=== PATIENT | male | born 1960 | race African-American/Black ===

== ENCOUNTER 2017-04-27 11:09 | Emergency (ER) | payer OTHER ==
[2017-04-27] MEDS ORDERED: ASPIRIN 81 MG TABLET, CHEWABLE PO ONE (11:16)
[2017-04-27] MEDS ORDERED: NITROGLYCERIN 2% OINTMENT 1 GM PACKET TP ONE (11:34)
[2017-04-27 11:41] LABS: ABSOLUTE EOSINOPHILS # (AUTO) 0.2 10^3/uL (0.0-0.6); ABSOLUTE LYMPHOCYTES (AUTO) 1.4 10^3/uL (0.5-4.7); ABSOLUTE MONOCYTES (AUTO) 0.7 10^3/uL (0.1-1.4); ABSOLUTE NEUT (AUTO) 3.8 10^3/uL (1.7-8.2); BASOPHILS % (AUTO) 0.3 % (0-2); EOSINOPHILS % (AUTO) 2.6 % (0-6); HEMATOCRIT 44.1 % (37.9-51.0); HEMOGLOBIN 14.1 g/dL (13.5-17.0); HGB HCT DIFFERENCE -1.8; LYMPHOCYTES % (AUTO) 22.5 % (13-45); MEAN CORPUSCULAR HEMOGLOBIN 23.3 pg (27.0-33.4); MEAN CORPUSCULAR VOLUME 73 fl (80-97); MONOCYTES % (AUTO) 12.2 % (3-13); RED BLOOD COUNT 6.05 10^6/uL (4.35-5.55); RED CELL DISTRIBUTION WIDTH 15.2 % (11.5-14.0); SEGMENTED NEUTROPHILS % (AUTO) 62.4 % (42-78); WHITE BLOOD COUNT 6.1 10^3/uL (4.0-10.5)
--- NOTE | 2017-04-27 11:41 | RADIOLOGY REPORT (SQ) ---
EXAM DESCRIPTION: CHEST SINGLE VIEW COMPLETED DATE/TIME: 04/27/2017 11:32 am REASON FOR STUDY: cp COMPARISON: None. EXAM PARAMETERS: NUMBER OF VIEWS: One view. TECHNIQUE: Single frontal radiographic view of the chest acquired. RADIATION DOSE: NA LIMITATIONS: None. FINDINGS: LUNGS AND PLEURA: No opacities, masses or pneumothorax. No pleural effusion. MEDIASTINUM AND HILAR STRUCTURES: No masses. Contour normal. HEART AND VASCULAR STRUCTURES: Heart normal in size. Normal vasculature. BONES: No acute findings. HARDWARE: None in the chest. OTHER: No other significant finding. IMPRESSION: NO ACUTE RADIOGRAPHIC FINDING IN THE CHEST. TECHNICAL DOCUMENTATION: JOB ID: [id number] [employer]- All Rights Reserved
[2017-04-27 11:47] LABS: PROTHROMBIN TIME 13.2 SEC (11.4-15.4)
[2017-04-27 12:08] LABS: ALANINE AMINOTRANSFERASE 40 U/L (21-72); ALBUMIN 4.4 g/dL (3.5-5.0); ALKALINE PHOSPHATASE 84 U/L (38-126); ANION GAP 14 (5-19); ASPARTATE AMINO TRANSFERASE 26 U/L (17-59); BILIRUBIN,DIRECT 0.3 mg/dL (0.0-0.4); BILIRUBIN,TOTAL 0.7 mg/dL (0.2-1.3); BLOOD UREA NITROGEN 20 mg/dL (7-20); CALCIUM 9.1 mg/dL (8.4-10.2); CARBON DIOXIDE 24 mmol/L (22-30); CHLORIDE 106 mmol/L (98-107); CREATINE KINASE 196 U/L (55-170); CREATININE RESULT 0.92 mg/dL (0.52-1.25); GLUCOSE 121 mg/dL (75-110); LIPASE 72.7 U/L (23-300); MAGNESIUM 1.9 mg/dL (1.6-2.3); POTASSIUM 4.4 mmol/L (3.6-5.0); SODIUM 143.9 mmol/L (137-145); TOTAL PROTEIN 6.9 g/dL (6.3-8.2)
[2017-04-27 12:33] LABS: APPEARANCE,URINE CLEAR; BILIRUBIN,URINE NEGATIVE (NEGATIVE); GLUCOSE, URINE NEGATIVE (NEGATIVE); KETONES,URINE NEGATIVE (NEGATIVE); LEUKOCYTE ESTERASE,URINE TRACE (NEGATIVE); NITRITE,URINE NEGATIVE (NEGATIVE); PROTEIN,URINE 100 mg/dL (NEGATIVE); URINE SPECIFIC GRAVITY 1.021; UROBILINOGEN,URINE NEGATIVE mg/dL (<2.0)
[2017-04-27 12:34] LABS: TROPONIN I < 0.012 ng/mL
[2017-04-27 14:20] VITALS: BP 115/76
--- NOTE | 2017-04-27 14:43 | EKG REPORT ---
SEVERITY:- ABNORMAL ECG - SINUS RHYTHM LVH WITH SECONDARY REPOLARIZATION ABNORMALITY ANTERIOR Q WAVES, POSSIBLY DUE TO LVH ABNORMAL T, PROBABLE ISCHEMIA, LATERAL LEADS : Confirmed by: Soco Valadez MD 27-Apr-2017 14:42:38
--- NOTE | 2017-04-27 14:43 | ER Document Report ---
ED General - General Chief Complaint: Chest Pain > 30 Stated Complaint: CHEST PAIN Time Seen by Provider: 04/27/17 11:16 TRAVEL OUTSIDE OF THE [place] IN LAST 30 DAYS: No - HPI Patient complains to provider of: Chest pain hematuria Notes: Patient coming in for evaluation chest pain hematuria. Patient states chest pain substernal with no shortness of breath no radiation ongoing since last night patient was given 2 nitro tablets by EMS at the [place] [facility] day he was being evaluated at prior to transport patient states is resolved his pain from a 4 out of 5 to now a 1 out of 5. Patient denies any GI history. Patient does state he does have a history of hyperlipidemia and diabetes. Patient also states history of prostate cancer approximately 8 years ago did have his prostate removed for recurrence of the cancer underwent radiation treatment. Patient states currently chest pain-free however the last 48 hours developed hematuria. Denies any trauma. Patient resting comfortably upon my evaluation. - Related Data Allergies/Adverse Reactions: lisinopril Allergy (Verified 04/27/17 11:24) Past Medical History - Social History Smoking Status: Unknown if Ever Smoked Family History: Reviewed & Not Pertinent Patient has suicidal ideation: No Patient has homicidal ideation: No - Past Medical History Cardiac Medical History: Reports: Hx Hypercholesterolemia, Hx Hypertension Endocrine Medical History: Reports: Hx Diabetes Mellitus Type 2 Renal/ Medical History: Denies: Hx Peritoneal Dialysis Past Surgical History: Reports: Hx Abdominal Surgery - hernia Review of Systems - Review of Systems Constitutional: No symptoms reported EENT: No symptoms reported Cardiovascular: Chest pain Respiratory: No symptoms reported Gastrointestinal: No symptoms reported Genitourinary: Hematuria Male Genitourinary: No symptoms reported Musculoskeletal: No symptoms reported Skin: No symptoms reported Hematologic/Lymphatic: No symptoms reported Neurological/Psychological: No symptoms reported -: Yes All other systems reviewed and negative Physical Exam - Vital signs Vitals: Resp Pulse Ox 17 98 04/27/17 11:18 04/27/17 11:18 Interpretation: Normal - General General appearance: Appears well, Alert - HEENT Head: Normocephalic, Atraumatic Eyes: Normal Pupils: PERRL - Respiratory Respiratory status: No respiratory distress Chest status: Nontender Breath sounds: Normal Chest palpation: Normal - Cardiovascular Rhythm: Regular Heart sounds: Normal auscultation Murmur: No - Abdominal Inspection: Normal Distension: No distension Bowel sounds: Normal Tenderness: Nontender Organomegaly: No organomegaly - Back Back: Normal, Nontender - Extremities General upper extremity: Normal inspection, Nontender, Normal color, Normal ROM , Normal temperature General lower extremity: Normal inspection, Nontender, Normal color, Normal ROM , Normal temperature, Normal weight bearing. No: Jesse's sign - Neurological Neuro grossly intact: Yes Cognition: Normal Orientation: AAOx4 Ezequiel Coma Scale Eye Opening: Spontaneous Val[place] Coma Scale Verbal: Oriented [place] Coma Scale Motor: Obeys Commands Ezequiel Coma Scale Total: 15 Speech: Normal Motor strength normal: LUE, RUE, LLE, RLE Sensory: Normal - Psychological Associated symptoms: Normal affect, Normal mood - Skin Skin Temperature: Warm Skin Moisture: Dry Skin Color: Normal Course - Re-evaluation Re-evalutation: 04/27/17 15:30 Recommended to the patient that he be admitted for chest pain is at the patient' s EKG was abnormal with diffuse T-wave inversions and ST segment depression. No signs of acute KS or STEMI. The recommended given the patient's troponin was negative and ongoing chest pain greater than 12 hours that due to the relief of pain with nitro that he stay in the hospital for further testing such as stress test and further rule out. Patient's urinalysis did show hematuria due to his history of prostate cancer concern for bladder cancer. Patient states that he would rather go home and follow-up with [facility] provider. I did highly discouraged this explained to the patient that this could result in certain or disability patient and at bedside state understanding. Patient will sign out AGAINST MEDICAL ADVICE. The patient has decided not to proceed with further recommended testing or treatment to determine the cause of their symptoms. The risks and alternatives to the recommendation were discussed and the patient voiced understanding. The patient appears clinically to have capacity to make this decision. The patient was instructed that he/she could return to the ER at any time to complete the testing or treatment.. - Vital Signs Vital signs: Temp Pulse Resp BP Pulse Ox 14 115/76 97 04/27/17 14:01 04/27/17 14:01 04/27/17 14:01 - Laboratory Result Diagrams: 04/27/17 11:25 04/27/17 11:25 Laboratory results interpreted by me: 04/27/17 04/27/17 04/27/17 11:25 11:25 11:25 RBC 6.05 H MCV 73 L MCH 23.3 L RDW 15.2 H APTT 38.0 H Glucose 121 H Creatine Kinase 196 H Urine Protein Urine Blood Ur Leukocyte Esterase 04/27/17 12:05 RBC MCV MCH RDW APTT Glucose Creatine Kinase Urine Protein 100 H Urine Blood MODERATE H Ur Leukocyte Esterase TRACE H Discharge - Discharge Clinical Impression: Abnormal EKG Chest pain Qualifiers: Chest pain type: unspecified Qualified Code(s): R07.9 - Chest pain, unspecified Hematuria Qualifiers: Hematuria type: gross Qualified Code(s): R31.0 - Gross hematuria Condition: Good Disposition: AGAINST MEDICAL ADVICE Instructions: Chest Pain of Unclear Cause ([facility]), Hematuria ([facility]) Additional Instructions: At this time your hematuria does not seem to be causing you any signs of anemia. I am concerned with your history of prostate cancer that she may now have possible cancer in her bladder he will need to follow-up with your primary care physician to see a urologist. He may follow-up with urologist listed here. Your EKG is not 100% normal however your lab work and chest x-ray did not show any significant pathology. There is no signs of any heart damage at this time. Is very concerning that she have abnormal EKG chest pain that was resolved with nitro however at this time despite my education and despite me offering you admission to the hospital you have stated that she was to leave or sign out AGAINST MEDICAL ADVICE. He stated understanding that this could result in certain or disability making it unable for you to work for you to brush her teeth for you to walk. I highly recommend she follow-up with your primary care physician. I do think any further testing done to Evaluate your heart. At any time he can return to the ER for further evaluation. Referrals: ARTURO SULLIVAN MD [ACTIVE STAFF] - Follow up as needed SHAHLA CUEVAS MD [NO LOCAL MD] - Follow up as needed
== END 2017-04-27 14:50 | disposition left against medical advice (07) ==
LOC: ER 11:09
DX: R31.0 Gross hematuria (principal); R07.9 Chest pain, unspecified; R94.31 Abnormal electrocardiogram [ECG] [EKG]; E78.5 Hyperlipidemia, unspecified; E11.9 Type 2 diabetes mellitus without complications; Z85.46 Personal history of malignant neoplasm of prostate
CPT/HCPCS: 36415; 71010; 80053; 81001; 82550; 82553; 83690; 83735; 84484; 85025; 85379; 85610; 85730; 87086; 87088; 87186; 93005; 93010; 99285

== ENCOUNTER 2017-05-02 10:39 | Observation (INO) | payer OTHER ==
--- NOTE | 2017-05-02 12:09 | ER Document Report ---
ED Medical Screen (RME) - General Chief Complaint: Chest Pain Stated Complaint: CHEST PAIN Time Seen by Provider: 05/02/17 12:07 Notes: Patient was here on 27 April for chest pain. However he left AMA. He states he is still having the pain so he decided to return for evaluation. He states he does not have any pain at rest. However when he moves or coughs he feels pain behind his sternum that radiates to his back. He states he does take an aspirin a day. He denies any previous history of heart disease or any type of cardiac evaluation in the past. TRAVEL OUTSIDE OF THE [place] IN LAST 30 DAYS: No - Related Data Allergies/Adverse Reactions: lisinopril Allergy (Verified 04/27/17 11:24) Home Medications: Current Home Medications Carboxymethylcellulos/Glycerin [Refresh Optive Gel Eye Drops] 10 ml OP PRN PRN 05/02/17 [History] Latanoprost [Xalatan 0.005% Oph Soln 2.5 ml] 1 drop OP QHS 05/02/17 [History] Losartan Potassium 100 mg PO DAILY 05/02/17 [History] Omeprazole 20 mg PO DAILY 05/02/17 [History] Oxybutynin Chloride 5 mg PO BID 05/02/17 [History] Sertraline HCl 100 mg PO DAILY 05/02/17 [History] Simvastatin 20 mg PO DAILY 05/02/17 [History] Trazodone HCl 50 mg PO PRN PRN 05/02/17 [History] Past Medical History - Social History Chew tobacco use (# tins/day): No Frequency of alcohol use: Rare Drug Abuse: None - Past Medical History Cardiac Medical History: Reports: Hx Hypercholesterolemia, Hx Hypertension Endocrine Medical History: Reports: Hx Diabetes Mellitus Type 2 Renal/ Medical History: Denies: Hx Peritoneal Dialysis Past Surgical History: Reports: Hx Abdominal Surgery - hernia Physical Exam - Vital signs Vitals: Temp Pulse Resp BP Pulse Ox 98.0 F 70 20 128/71 H 99 05/02/17 10:54 05/02/17 10:54 05/02/17 10:54 05/02/17 10:54 05/02/17 10:54 Course - Vital Signs Vital signs: Temp Pulse Resp BP Pulse Ox 98.0 F 70 20 128/71 H 99 05/02/17 10:54 05/02/17 10:54 05/02/17 10:54 05/02/17 10:54 05/02/17 10:54
[2017-05-02 12:30] LABS: ABSOLUTE EOSINOPHILS # (AUTO) 0.1 10^3/uL (0.0-0.6); ABSOLUTE LYMPHOCYTES (AUTO) 1.2 10^3/uL (0.5-4.7); ABSOLUTE MONOCYTES (AUTO) 0.5 10^3/uL (0.1-1.4); ABSOLUTE NEUT (AUTO) 2.2 10^3/uL (1.7-8.2); BASOPHILS % (AUTO) 0.6 % (0-2); EOSINOPHILS % (AUTO) 3.4 % (0-6); HEMATOCRIT 45.1 % (37.9-51.0); HEMOGLOBIN 14.8 g/dL (13.5-17.0); HGB HCT DIFFERENCE -0.7; LYMPHOCYTES % (AUTO) 30.4 % (13-45); MEAN CORPUSCULAR HEMOGLOBIN 23.8 pg (27.0-33.4); MEAN CORPUSCULAR HGB CONC 32.7 g/dL (32.0-36.0); MEAN CORPUSCULAR VOLUME 73 fl (80-97); MONOCYTES % (AUTO) 11.2 % (3-13); RED BLOOD COUNT 6.19 10^6/uL (4.35-5.55); RED CELL DISTRIBUTION WIDTH 15.2 % (11.5-14.0); SEGMENTED NEUTROPHILS % (AUTO) 54.4 % (42-78); WHITE BLOOD COUNT 4.1 10^3/uL (4.0-10.5)
--- NOTE | 2017-05-02 12:31 | RADIOLOGY REPORT (SQ) ---
EXAM DESCRIPTION: CHEST PA/LAT COMPLETED DATE/TIME: 05/02/2017 12:22 pm REASON FOR STUDY: pain COMPARISON: 04/27/2017. EXAM PARAMETERS: NUMBER OF VIEWS: two views TECHNIQUE: Digital Frontal and Lateral radiographic views of the chest acquired. RADIATION DOSE: NA LIMITATIONS: none FINDINGS: LUNGS AND PLEURA: No opacities, masses or pneumothorax. No pleural effusion. MEDIASTINUM AND HILAR STRUCTURES: No masses or contour abnormalities. HEART AND VASCULAR STRUCTURES: Heart normal size. No evidence for failure. BONES: No acute findings. HARDWARE: None in the chest. OTHER: No other significant finding. IMPRESSION: NO SIGNIFICANT RADIOGRAPHIC FINDING IN THE CHEST. TECHNICAL DOCUMENTATION: JOB ID: [id number] [employer]- All Rights Reserved
[2017-05-02 12:50] LABS: ALANINE AMINOTRANSFERASE 43 U/L (21-72); ALBUMIN 4.9 g/dL (3.5-5.0); ALKALINE PHOSPHATASE 92 U/L (38-126); ANION GAP 13 (5-19); ASPARTATE AMINO TRANSFERASE 32 U/L (17-59); BILIRUBIN,DIRECT 0.3 mg/dL (0.0-0.4); BILIRUBIN,TOTAL 0.7 mg/dL (0.2-1.3); BLOOD UREA NITROGEN 19 mg/dL (7-20); CALCIUM 9.8 mg/dL (8.4-10.2); CARBON DIOXIDE 28 mmol/L (22-30); CHLORIDE 103 mmol/L (98-107); CREATININE RESULT 0.84 mg/dL (0.52-1.25); GLUCOSE 71 mg/dL (75-110); POTASSIUM 4.2 mmol/L (3.6-5.0); SODIUM 144.1 mmol/L (137-145); TOTAL PROTEIN 7.8 g/dL (6.3-8.2)
[2017-05-02] MEDS ORDERED: ASPIRIN 81 MG TABLET, CHEWABLE PO ONE (13:04)
--- NOTE | 2017-05-02 13:07 | ER Document Report ---
ED Cardiac - General Chief Complaint: Chest Pain Stated Complaint: CHEST PAIN Time Seen by Provider: 05/02/17 12:07 Information source: Patient Notes: 56-year-old male with past medical history as recorded who presents today stating some chest pain intermittently nonexertional for 1 week. He was here 1 week ago and told to stable left AGAINST MEDICAL ADVICE. He denies any nausea, vomiting, fevers, calf pain or leg swelling. He returns here today because his [facility] physician told him to come here for evaluation/admission secondary to some increased chest pain. Patient does smoke and states family history of mom with congestive heart failure. Patient supposedly has a stress test scheduled for May at an outside facility. TRAVEL OUTSIDE OF THE [place] IN LAST 30 DAYS: No - HPI Patient complains to provider of: Chest pain, Chest tightness Was the onset of pain: Gradual Chest pain location: Substernal Quality of pain: Intermittent Chest pain radiation location: None Severity now: None Severity at worst: Moderate Pain level currently: Denies Cardiac risk factors: denies: None Exacerbated by: Denies Relieved by: Nothing Similar symptoms previously: No Recently seen / treated by doctor: No - Related Data Allergies/Adverse Reactions: lisinopril Allergy (Verified 04/27/17 11:24) Home Medications: Current Home Medications Carboxymethylcellulos/Glycerin [Refresh Optive Gel Eye Drops] 10 ml OP PRN PRN 05/02/17 [History] Latanoprost [Xalatan 0.005% Oph Soln 2.5 ml] 1 drop OP QHS 05/02/17 [History] Losartan Potassium 100 mg PO DAILY 05/02/17 [History] Omeprazole 20 mg PO DAILY 05/02/17 [History] Oxybutynin Chloride 5 mg PO BID 05/02/17 [History] Sertraline HCl 100 mg PO DAILY 05/02/17 [History] Simvastatin 20 mg PO DAILY 05/02/17 [History] Trazodone HCl 50 mg PO PRN PRN 05/02/17 [History] Past Medical History - General Information source: Patient - Social History Smoking Status: Current Every Day Smoker Cigarette use (# per day): No Chew tobacco use (# tins/day): No Smoking Education Provided: No Frequency of alcohol use: Rare Drug Abuse: None Family History: Reviewed & Not Pertinent Patient has suicidal ideation: No Patient has homicidal ideation: No - Past Medical History Cardiac Medical History: Reports: Hx Hypercholesterolemia, Hx Hypertension Endocrine Medical History: Reports: Hx Diabetes Mellitus Type 2 Renal/ Medical History: Denies: Hx Peritoneal Dialysis Past Surgical History: Reports: Hx Abdominal Surgery - hernia Review of Systems - Review of Systems Constitutional: denies: Fever EENT: denies: Eye discharge, Double vision, Nose discharge Cardiovascular: denies: Palpitations, Heart racing Respiratory: denies: Short of breath Gastrointestinal: denies: Abdomen distended, Abdominal pain, Vomiting Genitourinary: denies: Dysuria Musculoskeletal: denies: Leg swelling Skin: Other - no hives. denies: Rash Neurological/Psychological: Other - no slurred speech -: Yes All other systems reviewed and negative Physical Exam - Vital signs Vitals: Temp Pulse Resp BP Pulse Ox 98.0 F 70 20 128/71 H 99 05/02/17 10:54 05/02/17 10:54 05/02/17 10:54 05/02/17 10:54 05/02/17 10:54 Notes: Reviewed vital signs and nursing note as charted by RN. CONSTITUTIONAL: Alert and oriented and responds appropriately to questions. Well -appearing; well-nourished HEAD: Normocephalic; atraumatic CARD: Regular rate and rhythm; no murmurs, no clicks, no rubs, no gallops; symmetric distal pulses RESP: Normal chest excursion without splinting or tachypnea; breath sounds clear and equal bilaterally ABD/GI: Normal bowel sounds; non-distended; soft, non-tender BACK: The back appears normal and is non-tender to palpation EXT: Normal ROM in all joints; non-tender to palpation; no edema SKIN: No acute lesions noted NEURO: Moves all extremities equally; Motor and sensory function intact PSYCH: The patient's mood and manner are appropriate. Grooming and personal hygiene are appropriate. Course - Re-evaluation Re-evalutation: 05/02/17 13:06 Given the history and physical examination we will obtain an EKG, cardiac panel , x-ray of the chest, and reassess. Patient currently has no tenderness at this time. Patient took only a 1 81 mg baby aspirin earlier today. Believe the risk of pulmonary embolism and aortic dissection to be extremely unlikely. EKG shows a heart of 74, normal sinus rhythm, normal axis, LVH present, inverted T waves in leads I, 2, aVL, V4 through V6 with some mild ST depression in leads V4 through V6. Old EKG on April 27, 2017 shows no obvious appreciable changes 05/02/17 13:31 Patient is still chest pain-free. Initial troponin is unremarkable. Chest x-ray shows normal heart, normal mediastinum, no fractures, normal lung stroud, no pneumothorax. - Vital Signs Vital signs: Temp Pulse Resp BP Pulse Ox 98.0 F 70 20 128/71 H 99 05/02/17 10:54 05/02/17 10:54 05/02/17 10:54 05/02/17 10:54 05/02/17 10:54 - Laboratory Result Diagrams: 05/02/17 12:15 05/02/17 12:15 Laboratory results interpreted by me: 05/02/17 05/02/17 12:15 12:15 RBC 6.19 H MCV 73 L MCH 23.8 L RDW 15.2 H Glucose 71 L Discharge - Discharge Clinical Impression: Chest pain Qualifiers: Chest pain type: unspecified Qualified Code(s): R07.9 - Chest pain, unspecified Condition: Fair Disposition: ADMITTED OBSERVATION Admitting Provider: Hospitalist Unit Admitted: Telemetry
--- NOTE | 2017-05-02 13:24 | EKG REPORT ---
SEVERITY:- ABNORMAL ECG - SINUS RHYTHM PROBABLE LEFT ATRIAL ABNORMALITY LVH WITH SECONDARY REPOLARIZATION ABNORMALITY ANTERIOR Q WAVES, POSSIBLY DUE TO LVH ABNORMAL T, PROBABLE ISCHEMIA, LATERAL LEADS : Confirmed by: Eliezer Clarke MD 02-May-2017 13:22:46
[2017-05-02] MEDS ORDERED: NITROGLYCERIN 0.4 MG/TAB 25 TAB/BOTTLE SL PRN (14:21)
--- NOTE | 2017-05-02 15:00 | PDOC H&P ---
History of Present Illness Admission Date/PCP: 05/02/17 13:53 Patient complains of: chest pain History of Present Illness: JUAN MIGUEL JOLLEY is a 56 year old male presenting with a 1 week history of chest pain. Patient states last on patient started having chest pain. Patient states he ate and felt pain in the middle of his chest. One Sunday, he went to the [place] and he was sent to [facility] further evaluation. Patient left before being evaluated. Patient states since he has been home he has noticed that if he turns the wrong way while lying down or if he moves too much he feels the pain in the center of the chest. Patient states that he coughs he feels as if it most was back. Patient denies any abdominal pain or any radiation to the jaw or the left arm. Patient states that is not always associated with food. Patient denies ever having any chest discomfort in the past. The pain does come and go. It is hard for the patient to describe the pain but it feels as if something is getting stuck. Patient does note that he has been becoming more short of breath than usual but denies any difficulty lying flat or any swelling of his feet. 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 Patient states he has not been to work since last week. Patient does have a history of type 2 diabetes, hypertension, hyperlipidemia and a smoking history. He has never had a stress test. In the ED chest x-ray was negative, EKG showed some T-wave abnormality in lateral leads however patient initial troponin was negative. Patient was bradycardic and did have normal blood pressures. Past Medical History Cardiac Medical History: Reports: Hyperlipidema, Hypertension Endocrine Medical History: Reports: Diabetes Mellitus Type 2 Psychiatric Medical History: Reports: Tobacco Dependency Social History Smoking Status: Current Every Day Smoker - Advance Directive Resuscitation Status: Full Code Family History Family History: CAD, Other - renal failure Parental Family History Reviewed: No Children Family History Reviewed: No Sibling(s) Family History Reviewed.: No Medication/Allergy Home Medications: Carboxymethylcellulos/Glycerin [Refresh Optive Gel Eye Drops] 10 ml OP PRN PRN 05/02/17 Latanoprost [Xalatan 0.005% Oph Soln 2.5 ml] 1 drop OP QHS 05/02/17 Losartan Potassium 100 mg PO DAILY 05/02/17 Omeprazole 20 mg PO DAILY 05/02/17 Oxybutynin Chloride 5 mg PO BID 05/02/17 Sertraline HCl 100 mg PO DAILY 05/02/17 Simvastatin 20 mg PO DAILY 05/02/17 Trazodone HCl 50 mg PO PRN PRN 05/02/17 Allergies/Adverse Reactions: lisinopril Allergy (Verified 04/27/17 11:24) Review of Systems Constitutional: ABSENT: chills, fever(s), headache(s), weight gain, weight loss Eyes: ABSENT: visual disturbances Ears: ABSENT: hearing changes Cardiovascular: PRESENT: chest pain, dyspnea on exertion. ABSENT: edema, orthropnea, palpitations Respiratory: ABSENT: cough, hemoptysis Gastrointestinal: ABSENT: abdominal pain, constipation, diarrhea, hematemesis, hematochezia, nausea, vomiting Genitourinary: ABSENT: dysuria, hematuria Musculoskeletal: ABSENT: joint swelling Integumentary: ABSENT: rash, wounds Neurological: ABSENT: abnormal gait, abnormal speech, confusion, dizziness, focal weakness, syncope Psychiatric: ABSENT: anxiety, depression, homidical ideation, suicidal ideation Endocrine: ABSENT: cold intolerance, heat intolerance, polydipsia, polyuria Hematologic/Lymphatic: ABSENT: easy bleeding, easy bruising Physical Exam Vital Signs: Temp Pulse Resp BP Pulse Ox 98.0 F 70 20 129/78 H 100 05/02/17 10:54 05/02/17 10:54 05/02/17 13:01 05/02/17 13:01 05/02/17 13:01 General appearance: PRESENT: no acute distress, well-developed, well-nourished Head exam: PRESENT: normocephalic Eye exam: PRESENT: EOMI. ABSENT: scleral icterus Ear exam: PRESENT: normal external ear exam Mouth exam: PRESENT: moist Neck exam: ABSENT: carotid bruit, JVD, lymphadenopathy, thyromegaly Respiratory exam: PRESENT: clear to auscultation maria esther. ABSENT: rales, rhonchi, wheezes Cardiovascular exam: PRESENT: RRR. ABSENT: diastolic murmur, rubs, systolic murmur Pulses: PRESENT: normal dorsalis pedis pul Vascular exam: PRESENT: normal capillary refill GI/Abdominal exam: PRESENT: normal bowel sounds, soft. ABSENT: distended, guarding, mass, organolmegaly, rebound, tenderness Rectal exam: PRESENT: deferred Extremities exam: PRESENT: full ROM. ABSENT: calf tenderness, clubbing, pedal edema Neurological exam: PRESENT: alert, awake, oriented to person, oriented to place , oriented to time, oriented to situation, CN II-XII grossly intact. ABSENT: motor sensory deficit Psychiatric exam: PRESENT: appropriate affect, normal mood. ABSENT: homicidal ideation, suicidal ideation Skin exam: PRESENT: dry, intact, warm. ABSENT: cyanosis, rash Results Impressions: Chest X-Ray 05/02/17 12:07 IMPRESSION: NO SIGNIFICANT RADIOGRAPHIC FINDING IN THE CHEST. Assessment & Plan - Diagnosis (1) Chest pain Qualifiers: Chest pain type: unspecified Qualified Code(s): R07.9 - Chest pain, unspecified Is this a current diagnosis for this admission?: Yes Plan: Patient chest pain appears atypical however with a history of diabetes hypertension, hyperlipidemia and tobacco abuse it is appropriate that patient ACS rule out. He is on aspirin, statin and telemetry. No beta-reg given as patient is currently bradycardic. Cardiac echo ordered. Cardiology consulted to further evaluate patient. He given PPI as this may be GERD. 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 (2) HLD (hyperlipidemia) Qualifiers: Hyperlipidemia type: unspecified Qualified Code(s): E78.5 - Hyperlipidemia , unspecified Is this a current diagnosis for this admission?: Yes Plan: Continue patient on statin. Check lipid panel in the morning. (3) Type 2 diabetes mellitus Qualifiers: Diabetes mellitus complication status: without complication Is this a current diagnosis for this admission?: Yes Plan: Will place patient on sliding scale insulin. Will check hemoglobin A1c in the morning.. (4) Hypertension Qualifiers: Hypertension type: essential hypertension Qualified Code(s): I10 - Essential (primary) hypertension Is this a current diagnosis for this admission?: Yes Plan: Blood pressures are currently well controlled. Will continue home medications. (5) Bradycardia Is this a current diagnosis for this admission?: Yes Plan: This is asymptomatic in nature. As stated above patient would not be given a beta-reg as he is already bradycardic. (6) Tobacco abuse Is this a current diagnosis for this admission?: Yes Plan: Given nicotine patch and counseled patient on smoking cessation. - Time Time Spent: 30 to 50 Minutes Anticipated discharge: Home Within: within 24 hours - Inpatient Certification Medical Necessity: Risk of Diagnosis Which Will Require Inpatient Eval/Care/ Monitoring
[2017-05-02] MEDS ORDERED: DEXTROSE 50%-WATER 25 GM/50 ML DISP.SYRIN IV PRN ×2 (15:30)
[2017-05-02] MEDS ORDERED: GLUCAGON,HUMAN RECOMB 1 MG INJ IM PRN (15:30)
[2017-05-02] MEDS ORDERED: INSULIN LISPRO 100 UNIT/ML 3 ML VIAL SUBCUT PRN (15:30)
[2017-05-02] MEDS ORDERED: DEXTROSE 40% GEL 15 GM TUBE PO PRN ×2 (15:30)
--- NOTE | 2017-05-02 17:58 | XCELERA REPORT ---
[address] [address] Transthoracic Echocardiogram Report Name: JUAN MIGUEL JOLLEY Age: 56 yrs Gender: Male : 1960 Patient Status: Inpatient Patient Location: [place] [address]^A Study Date: 05/02/2017 02:42 PM Height: 66 in Weight: 167 lb BSA: 1.9 m2 Procedure: A two-dimensional transthoracic echocardiogram with color flow and Doppler was performed. The study was technically adequate with some images being suboptimal in quality. Reason For Study: Chest Pain Ordering Physician: FERNY MALIK Performed By: Aniyah Kearney Interpretation Summary The left ventricle is normal in size. There is mild concentric left ventricular hypertrophy. LV EF is > than 65% Left ventricular systolic function is normal. Doppler measurements suggest impaired left ventricular relaxation, which is associated with grade I/IV or mild diastolic dysfunction The left ventricular wall motion is normal. There is no thrombus. There is no ventricular septal defect visualized. The right atrium is normal. The left atrium is mildly dilated. The interatrial septum is intact with no evidence for an atrial septal defect. There is no evidence of mitral valve prolapse. There is no vegetation seen on the mitral valve. There is no mitral valve stenosis. There is a trace amount of mitral regurgitation There is no aortic valve stenosis There is no LVOT obstruction. There is a mild amount of aortic regurgitation There is no tricuspid stenosis. No tricuspid regurgitation. Cannot calculate RVSP due to insufficient TR jet. There is no pericardial effusion. MMode/2D Measurements & Calculations RVDd: 2.3 cm LVIDd: 5.4 cmFS: 48.5 % Ao root diam: 3.2 cm IVSd: 1.2 cm LVIDs: 2.8 cmEDV(Teich): 139.0 ml LVPWd: 1.2 cmESV(Teich): 28.5 ml Ao root area: 8.0 cm2 EF(Teich): 79.5 % LA dimension: 4.3 cm LVOT diam: 1.9 cm LVOT area: 2.9 cm2 Doppler Measurements & Calculations MV E max azeb: MV P1/2t max azeb: Ao V2 max: AI max azeb: 94.8 cm/sec 93.8 cm/sec 210.2 cm/sec 454.1 cm/sec MV A max azeb: MV P1/2t: 61.9 msec Ao max PG: AI max P.6 cm/sec MVA(P1/2t): 3.6 cm2 17.7 mmHg 82.5 mmHg MV E/A: 0.91 MV dec slope: CECILY(V,D): 2.7 cm2AI dec slope: 443.9 cm/sec2 170.6 cm/sec2 AI P1/2t: 779.8 msec LV V1 max PG: PA V2 max: 15.9 mmHg 87.9 cm/sec LV V1 max: PA max P.1 mmHg 199.5 cm/sec Left Ventricle The left ventricle is normal in size. There is mild concentric left ventricular hypertrophy. LV EF is > than 65%. Left ventricular systolic function is normal. Doppler measurements suggest impaired left ventricular relaxation, which is associated with grade I/IV or mild diastolic dysfunction. The left ventricular wall motion is normal. There is no thrombus. There is no ventricular septal defect visualized. Right Ventricle The right ventricle is normal size. Atria The right atrium is normal. The left atrium is mildly dilated. The interatrial septum is intact with no evidence for an atrial septal defect. Mitral Valve There is no evidence of mitral valve prolapse. There is no vegetation seen on the mitral valve. There is no mitral valve stenosis. There is a trace amount of mitral regurgitation. Aortic Valve There is no aortic valvular vegetation. There is no aortic valve stenosis. There is no LVOT obstruction. There is a mild amount of aortic regurgitation. Tricuspid Valve There is no tricuspid stenosis. No tricuspid regurgitation. Cannot calculate RVSP due to insufficient TR jet. Pulmonic Valve There is no pulmonic valvular stenosis. There is no pulmonic valvular regurgitation. Great Vessels The aortic root is normal size. Effusions There is no pericardial effusion. : FERNY MALIK > Soco Valadez
[2017-05-02] MEDS ORDERED: TRAZODONE HCL 50 MG TABLET PO PRN (22:44)
[2017-05-02 22:47] LABS: URINE BARBITURATES SCREEN NEGATIVE; URINE METHADONE SCREEN NEGATIVE; URINE OPIATES LOW NEGATIVE; URINE PHENCYCLIDINE SCREEN NEGATIVE
[2017-05-03] MEDS ORDERED: DEXTROSE 50%-WATER 25 GM/50 ML DISP.SYRIN IV PRN ×2 (07:22)
[2017-05-03] MEDS ORDERED: GLUCAGON,HUMAN RECOMB 1 MG INJ SUBCUT PRN (07:22)
[2017-05-03] MEDS ORDERED: DEXTROSE 40% GEL 15 GM TUBE PO PRN ×2 (07:22)
[2017-05-03 07:52] LABS: CHOLESTEROL 183.65 mg/dL (0-200); Direct HDL 44 mg/dL (>40); TRIGLYCERIDES 92 mg/dL (<150)
[2017-05-03 08:04] LABS: DIRECT LDL 118 mg/dL (<100)
[2017-05-03 08:24] LABS: THYROID STIMULATING HORMONE 0.8 uIU/mL (0.47-4.68)
[2017-05-03] MEDS ORDERED: LANSOPRAZOLE 15 MG TAB.RAP.DR PO SCH (10:00)
[2017-05-03] MEDS ORDERED: LOSARTAN POTASSIUM 50 MG TABLET PO SCH (10:00)
[2017-05-03] MEDS ORDERED: PANTOPRAZOLE SODIUM 40 MG VIAL IV SCH (10:00)
[2017-05-03] MEDS ORDERED: MULTIVITAMIN TABLET PO SCH (10:00)
[2017-05-03] MEDS ORDERED: ASPIRIN 81 MG TABLET, CHEWABLE PO SCH (10:00)
[2017-05-03] MEDS ORDERED: CIPROFLOXACIN HCL 500 MG TABLET PO SCH (10:00)
[2017-05-03] MEDS ORDERED: SERTRALINE HCL 50 MG TABLET PO SCH (10:00)
[2017-05-03] MEDS ORDERED: CARBOXYMETHYLCELLULOSE SOD 0.5% 0.4 ML DROPERETTE OU SCH (10:00)
[2017-05-03 11:49] VITALS: BP 138/81
[2017-05-03] MEDS ORDERED: REGADENOSON INJ 0.4 MG/5 ML DISP.SYRIN IV ONE (14:14)
--- NOTE | 2017-05-03 15:16 | PDOC DISCHARGE SUMMARY ---
General - Admit/Disc Date/PCP Admission Date/Primary Care Provider: 05/02/17 13:53 Discharge Date: 05/03/17 - Discharge Diagnosis (1) Chest pain Is this a current diagnosis for this admission?: Yes (2) HLD (hyperlipidemia) Is this a current diagnosis for this admission?: Yes (3) Type 2 diabetes mellitus Is this a current diagnosis for this admission?: Yes (4) Hypertension Is this a current diagnosis for this admission?: Yes (5) Bradycardia Is this a current diagnosis for this admission?: Yes (6) Tobacco abuse Is this a current diagnosis for this admission?: Yes - Additional Information Resuscitation Status: Full Code Discharge Diet: Cardiac, Diabetic Discharge Activity: Activity As Tolerated Home Medications: Aspirin [Aspirin EC] 81 mg PO DAILY 05/02/17 Carboxymethylcellulose Sodium [Refresh Tears] 1 drop OU Q12 05/02/17 Ciprofloxacin HCl [Cipro] 500 mg PO Q12 05/02/17 Latanoprost [Xalatan 0.005% Oph Soln 2.5 ml] 1 drop OU QHS 05/02/17 Losartan Potassium [Cozaar 100 mg Tablet] 100 mg PO DAILY 05/02/17 Multivitamin [Daily Multiple Vitamin] 1 tab PO DAILY 05/02/17 Omeprazole 20 mg PO DAILY 05/02/17 Oxybutynin Chloride [Ditropan 5 mg Tablet] 5 mg PO Q12 05/02/17 Sertraline HCl [Zoloft] 100 mg PO DAILY 05/02/17 Simvastatin [Zocor 40 mg Tablet] 20 mg PO QHS 05/02/17 Trazodone HCl [Desyrel 50 mg Tablet] 50 mg PO HSP PRN 05/02/17 Triamcinolone Acetonide [Aristocort 0.1% Cream] 1 applic TOP Q12 05/02/17 History of Present Illness History of Present Illness: JUAN MIGUEL JOLLEY is a 56 year old male presenting with a 1 week history of chest pain. Patient states last on patient started having chest pain. Patient states he ate and felt pain in the middle of his chest. One Sunday, he went to the [place] and he was sent to [facility] further evaluation. Patient left before being evaluated. Patient states since he has been home he has noticed that if he turns the wrong way while lying down or if he moves too much he feels the pain in the center of the chest. Patient states that he coughs he feels as if it most was back. Patient denies any abdominal pain or any radiation to the jaw or the left arm. Patient states that is not always associated with food. Patient denies ever having any chest discomfort in the past. The pain does come and go. It is hard for the patient to describe the pain but it feels as if something is getting stuck. Patient does note that he has been becoming more short of breath than usual but denies any difficulty lying flat or any swelling of his feet. 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 Patient states he has not been to work since last week. Patient does have a history of type 2 diabetes, hypertension, hyperlipidemia and a smoking history. He has never had a stress test. In the ED chest x-ray was negative, EKG showed some T-wave abnormality in lateral leads however patient initial troponin was negative. Patient was bradycardic and did have normal blood pressures. H&P written by me Dr. Gunter Hospital Course Hospital Course: Patient presented with atypical chest pain. He complains of something feeling stuck then going away. Patient is hypertensive, diabetic, HLD and a smoker. Patient was there worked brought in for ACS rule out. Patient cardiac work up was negative. Patient may be having esophageal spasm. Patient is already on a PPI. Patient was continued on a statin. He was placed on SSI for his diabetes. Patient counseled on smoking cessation. Patient is bradycardiac but asymptomatic. Patient is happy to go home. Physical Exam Vital Signs: Temp Pulse Resp BP Pulse Ox 98.2 F 65 20 138/81 H 98 05/03/17 11:47 05/03/17 11:47 05/03/17 11:47 05/03/17 11:47 05/03/17 11:47 Intake & Output 05/02/17 05/03/17 05/04/17 06:59 06:59 06:59 Intake Total 3 Balance 3 Weight 75.7 kg General appearance: PRESENT: no acute distress, well-developed, well-nourished Head exam: PRESENT: atraumatic, normocephalic Eye exam: PRESENT: conjunctiva pink, EOMI, PERRLA. ABSENT: scleral icterus Ear exam: PRESENT: normal external ear exam Mouth exam: PRESENT: moist, tongue midline Neck exam: ABSENT: carotid bruit, JVD, lymphadenopathy, thyromegaly Respiratory exam: PRESENT: clear to auscultation maria esther. ABSENT: rales, rhonchi, wheezes Cardiovascular exam: PRESENT: RRR. ABSENT: diastolic murmur, rubs, systolic murmur Pulses: PRESENT: normal dorsalis pedis pul Vascular exam: PRESENT: normal capillary refill GI/Abdominal exam: PRESENT: normal bowel sounds, soft. ABSENT: distended, guarding, mass, organolmegaly, rebound, tenderness Rectal exam: PRESENT: deferred Extremities exam: PRESENT: full ROM. ABSENT: calf tenderness, clubbing, pedal edema Neurological exam: PRESENT: alert, awake, oriented to person, oriented to place , oriented to time, oriented to situation, CN II-XII grossly intact. ABSENT: motor sensory deficit Psychiatric exam: PRESENT: appropriate affect, normal mood. ABSENT: homicidal ideation, suicidal ideation Skin exam: PRESENT: dry, intact, warm. ABSENT: cyanosis, rash Results Laboratory Results: 05/03/17 05/03/17 06:57 06:57 Triglycerides 92 Cholesterol 183.65 LDL Cholesterol Direct 118 H VLDL Cholesterol 18.0 HDL Cholesterol 44 TSH 0.80 Free T4 1.23 05/02/17 05/03/17 05/03/17 19:29 01:30 06:57 Troponin I 0.015 < 0.012 < 0.012 Impressions: Chest X-Ray 05/02/17 12:07 IMPRESSION: NO SIGNIFICANT RADIOGRAPHIC FINDING IN THE CHEST. Qualifiers PATEINT BEING DISCHARGED WITH ANY OF THE FOLLOWING DIAGNOSIS?: No Plan Time Spent: Less than 30 Minutes
[2017-05-03] MEDS ORDERED: LATANOPROST 0.005% OPH SOLN 2.5 ML OU SCH (22:00)
[2017-05-04] MEDS ORDERED: LANSOPRAZOLE 15 MG TAB.RAP.DR PO SCH (06:00)
--- NOTE | 2017-05-05 15:54 | DRAGON STRESS TEST REPORT ---
Intravenous Lexiscan Cardiolite stress test using single photon emmision computerized tomography. Date of procedure: 05/03/2017. Ordering Provider: Dr. Silva. Patient's status: In Patient Indication: Chest pain, and abnormal EKG. Coronary risk factors: Age, diabetes mellitus, hypertension, and dyslipidemia Resting EKG: Sinus Rhythm LVH with strain pattern. Cannot exclude inferolateral ischemia. Stress EKG:[ No changes of ischemia. The patient had no chest pain or discomfort, and there were no arrhythmias seen. Reason for termination: Protocol. Conclusions: Normal EKG and hemodynamic response to IV Lexiscan. Nuclear data: At rest the patient was given 11.82 millicuries of technetium 99m sestamibi injected intravenously. As per protocol rest non gated SPECT images were obtained. Subsequently the patient was given intravenous Lexiscan at a dose of 0.4 mg in 5 mL intravenously, followed by flush with normal saline. Subsequently the stress dose of 34.4 millicuries of technetium 99m sestamibi was injected intravenously. As per protocol stress gated images were obtained. Nuclear interpretation: Review of images showed that all segments of the myocardium had normal perfusion at rest, and normal perfusion post stress with IV Lexiscan. All segments of the myocardium had normal motion, contraction, and thickening by gated study. T. I D. ratio was normal at 1.10. Computer read rest, and stress left ventricular ejection fraction were 63 %, and 61 %, respectively. Conclusion: 1. There is no scintigraphic evidence of Lexiscan induced myocardial ischemia. 2. There is no scintigraphic evidence of myocardial infarction/scar. Recommendations: Aggressive risk factor modification, and treating the underlying co- morbidities. MTDD
== END 2017-05-03 15:40 | disposition home or self-care (01) ==
LOC: ER 10:39 → EH 13:53 → 5 16:18
PROVIDERS: ADMIT Hospitalist; ATTEND Hospitalist
DX: R07.89 Other chest pain (principal); E78.5 Hyperlipidemia, unspecified; E11.9 Type 2 diabetes mellitus without complications; I10 Essential (primary) hypertension; R00.1 Bradycardia, unspecified; Z79.82 Long term (current) use of aspirin; Z79.899 Other long term (current) drug therapy; R94.31 Abnormal electrocardiogram [ECG] [EKG]; R06.02 Shortness of breath; Z82.49 Family history of ischemic heart disease and other diseases of the circulatory system; F17.200 Nicotine dependence, unspecified, uncomplicated
CPT/HCPCS: 93005; 99285; 36415 ×2; 84439; 82962 ×2; 84443; 85025; 80053; 84484 ×2; 80307; 83036; 80061; 93306; 93017; 71020; 78452; 93010; G0378 ×3; A9500; J2785; J3490 ×2; Q9969